=== PATIENT | male | born 1960 | race Hispanic/Latino ===

== ENCOUNTER 2021-08-14 14:54 | Emergency (ER) | payer OTHER ==
[~2021-08-14] VITALS: Ht 165.1 cm; Wt 63.5 kg
[2021-08-14 14:57] VITALS: BP 117/82
[2021-08-14 15:37] LABS: BILIRUBIN,URINE NEGATIVE (NEGATIVE); COLOR,URINE YELLOW (YELLOW); GLUCOSE, URINE (UA) >=1000 mg/dL (NEGATIVE); KETONES,URINE 5 mg/dL (NEGATIVE); LEUKOCYTE ESTERASE ,URINE NEGATIVE (NEGATIVE); NITRATE,URINE POSITIVE (NEGATIVE); OCCULT BLOOD,URINE TRACE-INTACT (NEGATIVE); PH,URINE 5.5 (5.0-8.0); PROTEIN,URINE 30 mg/dL (NEGATIVE); UROBILINOGEN,URINE 0.2 mg/dL (0.2-1.0)
[2021-08-14 15:38] LABS: APPEARANCE,URINE SLIGHTLY CLOUDY (CLEAR)
[2021-08-14] MEDS ORDERED: CEFTRIAXONE 1G VIAL ONE (15:45)
[2021-08-14] MEDS ORDERED: PHENAZOPYRIDINE HCL 200 MG TABLET ONE (15:45)
[2021-08-14 15:49] LABS: BACTERIA,URINE Moderate /HPF (None Seen); WBC,URINE 26-50 /HPF (0-1)
[2021-08-14 15:50] LABS: MUCUS,URINE Few LPF (None Seen); SQUAMOUS EPITHELIAL CELL,UR Few /HPF (0-2)
[2021-08-14] MEDS ORDERED: CEFTRIAXONE 1G VIAL IM SCH (16:00)
[2021-08-14] MEDS ORDERED: PHENAZOPYRIDINE HCL 200 MG TABLET PO SCH (16:00)
[2021-08-14] MEDS ORDERED: CEPH500B PO (16:07)
[2021-08-14] MEDS ORDERED: PHEN-847 PO (16:07)
== END 2021-08-14 16:24 | disposition home or self-care (01) ==
LOC: EDH 14:54
DX: U07.1 COVID-19 (principal); N39.0 Urinary tract infection, site not specified; I10 Essential (primary) hypertension; E11.9 Type 2 diabetes mellitus without complications
CPT/HCPCS: 81001; 87077; 87088; 87186; 96372; 99283; J0696